=== PATIENT | male | born 1975 | race Two or more races ===

== ENCOUNTER 2017-04-27 01:44 | Emergency (ER) | payer SELFPAY ==
[~2017-04-27] VITALS: Ht 170.2 cm; Wt 77.1 kg
--- NOTE | 2017-04-27 01:54 | NUR ---
42 YO MALE BB RA. PT IS ALERT X 3, C/O LOWER ABD PAIN, SHARP STABBING LIKE X 4 HOURSE. 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 AWAITING ORDERS FROM PROVIDER, WILL COTNINUE TO MONITOR
[2017-04-27] MEDS ORDERED: ONDANSETRON HCL/PF 4 MG/2 ML VIAL ONE (02:14)
[2017-04-27] MEDS ORDERED: HYDROMORPHONE 1 MG/1 ML DISP.SYRIN ONE ×2 (02:15→04:10)
[2017-04-27 02:20] LABS: EOSINOPHILS % (AUTO) 0.1 % (0.0-6.0); HEMATOCRIT 43 % (39-51); LYMPHOCYTES # (AUTO) 0.6 /CMM (0.8-4.8); LYMPHOCYTES % (AUTO) 5.5 % (20.0-44.0); MEAN CORPUSCULAR HEMOGLOBIN 26 PG (26.0-33.0); MEAN CORPUSCULAR HGB CONC 33 g/dl (31.0-36.0); MEAN CORPUSCULAR VOLUME 79 fL (80-96); MONOCYTES # (AUTO) 0.4 /CMM (0.1-1.30); MONOCYTES % (AUTO) 4.2 % (2.0-12.0); NEUTROPHILS % (AUTO) 90.2 % (43.0-81.0); PLATELET COUNT (AUTO) 219 /CMM (150-450); RDW COEFFICIENT OF VARIATION 14.8 (11.5-15.0); RED BLOOD CELL COUNT(AUTO) 5.42 MIL/uL (4.5-6.0)
[2017-04-27] MEDS ORDERED: ONDANSETRON HCL/PF 4 MG/2 ML VIAL IVP ONE (02:30)
[2017-04-27] MEDS ORDERED: IV NS 0.9% 1,000 ML BAG IV ONE (02:30)
[2017-04-27] MEDS ORDERED: HYDROMORPHONE INJ 2 MG/ML DISP.SYRIN IV ONE (02:30)
[2017-04-27 02:32] LABS: CALCIUM, SERUM 8.2 mg/dL (8.5-10.1)
[2017-04-27 02:34] LABS: INR 0.99 (0.87-1.13); PROTHROMBIN TIME 10.3 SECS (9.5-12.7)
[2017-04-27 02:56] LABS: ALBUMIN 3.5 g/dL (3.4-5.0); BILIRUBIN,DIRECT 0.1 mg/dL (0.0-0.2); BILIRUBIN,TOTAL 0.6 mg/dL (0.2-1.0); TOTAL PROTEIN, SERUM 7.2 g/dL (6.4-8.2)
--- NOTE | 2017-04-27 03:56 | NUR ---
[facility] at bedside to re-eval pt.
[2017-04-27] MEDS ORDERED: LORAZEPAM INJ 2 MG/ML VIAL ONE (04:09)
[2017-04-27] MEDS ORDERED: DICYCLOMINE HCL INJ 20 MG/2 ML AMPUL IM ONE ×2 (04:10→04:30)
--- NOTE | 2017-04-27 04:28 | NUR ---
medicated pt as ordered
[2017-04-27] MEDS ORDERED: HYDROMORPHONE 1 MG/1 ML DISP.SYRIN IV ONE (04:30)
[2017-04-27] MEDS ORDERED: LORAZEPAM INJ 2 MG/ML VIAL IV ONE (04:30)
[2017-04-27 05:15] LABS: APPEARANCE,URINE CLEAR (CLEAR); BILIRUBIN,URINE NEGATIVE (NEGATIVE); BLOOD, URINE NEGATIVE Ery/uL (NEGATIVE); COLOR,URINE YELLOW (YELLOW); KETONES,URINE NEGATIVE (NEGATIVE); LEUKOCYTE ESTERASE ,URINE NEGATIVE (NEGATIVE); NITRITE, URINE NEGATIVE (NEGATIVE); PH,URINE 5.5 (5.0-8.0); PROTEIN,URINE NEGATIVE (NEGATIVE); UGLUCOSE NEGATIVE (NEGATIVE); UROBILINOGEN,URINE 0.2 EU/dL (0.2)
[2017-04-27 05:55] VITALS: BP 158/88
--- NOTE | 2017-04-27 05:55 | NUR ---
Patient discharged to home in stable condition. Written and verbal after care instructions given. Patient verbalizes understanding of instruction.IV removed. Catheter intact and site benign. Pressure and 4x4 applied to site. No bleeding noted. pt ambulatory with a steady gait VITAL SIGNS WITHIN NORMAL LIMITS.
== END 2017-04-27 05:55 | disposition home or self-care (01) ==
LOC: ER 01:47
DX: R10.9 Unspecified abdominal pain (principal); F15.10 Other stimulant abuse, uncomplicated
CPT/HCPCS: 36415; 74176; 80048; 80076; 80305; 81001; 83690; 85025; 85730; 96361; 96372; 96374; 96375; 96376; 99285; A4606; G0480; J0500; J1170 ×2; J2060; J2405; J7030; Z7610; 81000-TC

== ENCOUNTER 2017-04-27 11:44 | Emergency (ER) | payer SELFPAY ==
[~2017-04-27] VITALS: Ht 170.2 cm; Wt 74.8 kg
--- NOTE | 2017-04-27 13:07 | NUR ---
PT. VERBALIZED UNDERSTANDING OF AFTERCARE INSTRUCTIONS.Patient discharged to home in stable condition. Written and verbal after care instructions given. Patient verbalizes understanding of instruction.
[2017-04-27 13:51] VITALS: BP 121/67
== END 2017-04-27 13:52 | disposition home or self-care (01) ==
LOC: ER 11:45
DX: R19.7 Diarrhea, unspecified (principal)
CPT/HCPCS: A4606; Z7610

== ENCOUNTER 2017-04-27 19:35 | Emergency (ER) | payer SELFPAY ==
[~2017-04-27] VITALS: Ht 152.4 cm; Wt 68.0 kg
--- NOTE | 2017-04-27 19:40 | NUR ---
CALLED FOR TRAIGE; SNORING AND WHEN WOKEN UP BECOMES AGGRESSIVE TO EVEN SECURITY. DR. HOLLAND NOTIFIED.
[2017-04-27 19:50] VITALS: BP 118/70
--- NOTE | 2017-04-27 20:05 | NUR ---
GAVIN CAFETER[employer] CASHIER AT BEDSIDE FOR EVAL.
[2017-04-27] MEDS ORDERED: DIPHENOXYLATE HCL/ATROP SULF 1 UDTAB TABLET ONE (20:11)
[2017-04-27] MEDS ORDERED: DIPHENOXYLATE HCL/ATROP SULF 1 UDTAB TABLET PO ONE (20:30)
== END 2017-04-27 22:26 | disposition home or self-care (01) ==
LOC: ER 19:35
DX: R19.7 Diarrhea, unspecified (principal); Z59.0 Homelessness
CPT/HCPCS: 99282; A4606; Z7610